=== PATIENT | male | born 2000 ===

== ENCOUNTER 2022-12-16 08:59 | Day surgery (SDC) | payer OTHER ==
[~2022-12-16] VITALS: Ht 172.7 cm; Wt 65.5 kg
[2022-12-16] MEDS ORDERED: LEXAPRO20 MG PO (09:42)
[2022-12-16 10:41] VITALS: BP 117/76; PULSE 81; TEMP 97.9
[2022-12-16 10:50] VITALS: BP 101/64; PULSE 69; TEMP 97.6
--- NOTE | 2022-12-16 10:50 | NUR ---
The patient arrived back to [facility] from the endoscopy suite. The patient appears very drowsy but does arouse to his name. The patient was left on the procedure cart until he is more awake. Post procedure vital signs were started at this time. Call light is within reach.
[2022-12-16 11:03] VITALS: BP 105/74; PULSE 64
[2022-12-16 11:05] VITALS: BP 105/74; PULSE 64
--- NOTE | 2022-12-16 11:05 | NUR ---
The patient continues to appear very drowsy but arouses more easily to his name at this time. Vital signs appear stable. Call light remains within reach.
[2022-12-16 11:20] VITALS: BP 102/56; PULSE 62
[2022-12-16 11:35] VITALS: BP 111/71; PULSE 60
--- NOTE | 2022-12-16 11:35 | NUR ---
After the patient was aroused from sleep he was instructed that in order to be discharged he had to eat and drink. He perked up and sat upright in bed and agrees to try some kera crackers and apple juice. Vital signs appear stable. Call light is remains within reach.
--- NOTE | 2022-12-16 12:00 | NUR ---
Discharge instructions were reviewed with the patient at this time. He verbalized understanding and has no questions for the nurse at this time. Dr. Frances called the patient's mother on speakerphone and spoke to both of them regarding the findings of the procedure. The patient's IV to right hand was removed and a pressure dressing was applied to the site. The patient was instructed to get dressed and notify the staff when he is ready to be escorted out.
--- NOTE | 2022-12-16 12:10 | NUR ---
The patient was escorted out via wheelchair to a private vehicle by NESTOR Cohen. The patient's friend, Jeffery, is present to drive him home. The patient's belongings and discharge paperwork were sent with him.
== END 2022-12-16 12:10 | disposition home or self-care (01) ==
LOC: SDCO 08:59
DX: K59.00 Constipation, unspecified (principal); R14.0 Abdominal distension (gaseous); R10.9 Unspecified abdominal pain; R19.7 Diarrhea, unspecified; Z79.899 Other long term (current) drug therapy
CPT/HCPCS: J2704; J7120